=== PATIENT | female | born 1935 | race African-American/Black ===

== ENCOUNTER 2017-04-29 11:26 | Emergency (ER) | payer MEDICARE, OTHER ==
[2017-04-29] MEDS ORDERED: ACETAMINOPHEN 325 MG TABLET PO ONE (12:31)
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
[2017-04-29 14:08] VITALS: BP 103/50
== END 2017-04-29 14:08 | disposition home or self-care (01) ==
LOC: ER 11:26
DX: S30.0XXA Contusion of lower back and pelvis, initial encounter (principal); Y04.2XXA Assault by strike against or bumped into by another person, initial encounter; W18.30XA Fall on same level, unspecified, initial encounter; Y92.009 Unspecified place in unspecified non-institutional (private) residence as the place of occurrence of the external cause; I10 Essential (primary) hypertension; Z87.442 Personal history of urinary calculi
CPT/HCPCS: 99283; 72220; A9270

== ENCOUNTER 2017-12-01 11:01 | Emergency (ER) | payer MEDICARE, OTHER ==
--- NOTE | 2017-12-01 12:10 | ER Document Report ---
ED Medical Screen (RME) - General Chief Complaint: Neck Pain >24hrs old Stated Complaint: NECK PAIN Time Seen by Provider: 12/01/17 12:07 Mode of Arrival: Ambulatory Information source: Patient Notes: This is a pleasant 82-year-old woman with a history of hypertension, chronic kidney disease and arthritis who presents to the emergency room with back pain. Patient states it is more of a tightness. 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 Patient does state that she feels some discomfort in the left shoulder but the pain does not go all the way to the arms. She denies any weakness in the extremities. She denies any recent illnesses or fever. On review of systems, patient does state she sometimes gets dizzy on sitting up. She states she has not been eating as well since her passed this past September. She is followed by Parvin Wilde as well as Dr. Moore for the renal issue. TRAVEL OUTSIDE OF THE [place] IN LAST 30 DAYS: No - HPI Onset: Last week Onset/Duration: Gradual Quality of pain: Achy Severity: Moderate Pain Level: 2 Associated Symptoms: denies: Chest pain, Headache, Nausea, Shortness of breath, Vomiting Exacerbated by: Movement Relieved by: Remaining still Similar symptoms previously: Yes Recently seen / treated by doctor: No - Related Data Smoking: Non-smoker Frequency of alcohol use: None Drug Abuse: None Allergies/Adverse Reactions: No Known Allergies Allergy (Verified 04/29/17 11:30) Past Medical History - General Information source: Patient - Social History Cigarette use (# per day): No Chew tobacco use (# tins/day): No Frequency of alcohol use: None Drug Abuse: None Lives with: Family Family history: None - Past Medical History Cardiac Medical History: Reports: Hx Hypertension Denies: Hx Heart Attack Pulmonary Medical History: Denies: Hx Asthma Neurological Medical History: Denies: Hx Cerebrovascular Accident, Hx Seizures Renal/ Medical History: Reports: Hx Kidney Stones, Other - Chronic kidney disease. 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 Denies: Hx Hepatitis, Hx Hiatal Hernia, Hx Ulcer Musculoskeltal Medical History: Reports Hx Arthritis Infectious Medical History: Denies: Hx Hepatitis Past Surgical History: Reports: Hx Bowel Surgery - ostomy. Denies: Hx Mastectomy, Hx Open Heart Surgery, Hx Pacemaker - Immunizations Hx Diphtheria, Pertussis, Tetanus Vaccination: Yes - given today in ED Review of Systems - Review of Systems Constitutional: denies: Chills, Fever EENT: Other - See H&P Cardiovascular: denies: Chest pain, Palpitations, Dyspnea Respiratory: denies: Cough, Hemoptysis, Short of breath Gastrointestinal: No symptoms reported Genitourinary: No symptoms reported Female Genitourinary: No symptoms reported Musculoskeletal: See HPI Skin: No symptoms reported Hematologic/Lymphatic: No symptoms reported Neurological/Psychological: No symptoms reported Physical Exam - Vital signs Vitals: Temp Pulse Resp BP Pulse Ox 97.7 F 77 14 105/48 L 98 12/01/17 11:12 12/01/17 11:12 12/01/17 11:12 12/01/17 11:12 12/01/17 11:12 Notes: Physical exam: GENERAL: 82-year-old female, alert and oriented 3, no acute distress. Patient' s blood pressure is 105/48. HEAD: Atraumatic, normocephalic. EYES: Pupils equal round and reactive to light, extraocular movements intact, sclera anicteric, conjunctiva are normal. ENT: TMs normal, nares patent, oropharynx clear without exudates. Moist mucous membranes. NECK: Patient does have some scoliosis/curvature. There is no cervical spine tenderness to palpation. Normal range of motion given her age of 82, supple without obvious mass or JVD. LUNGS: Breath sounds clear to auscultation bilaterally and equal. No wheezes rales or rhonchi. HEART: Regular rate and rhythm without murmurs, rubs or gallops. ABDOMEN: Soft, normoactive bowel sounds. No tenderness to palpation. No guarding, no rebound. No masses appreciated. EXTREMITIES: Normal range of motion, no pitting or edema. No clubbing or cyanosis. NEUROLOGICAL: Cranial nerves II through XII grossly intact. Normal speech, moving all extremities. PSYCH: Normal mood, normal affect. SKIN: Warm, Dry, normal turgor, no rashes or lesions noted. Course - Vital Signs Vital signs: Temp Pulse Resp BP Pulse Ox 97.7 F 77 14 105/48 L 98 12/01/17 11:12 12/01/17 11:12 12/01/17 11:12 12/01/17 11:12 12/01/17 11:12 - Diagnostic Test Radiology reviewed: Image reviewed, Reports reviewed - CT of the neck does show significant arthritis. There is no obvious bony lesions. Doctor's Discharge - Discharge Clinical Impression: Neck strain Condition: Stable Disposition: HOME, SELF-CARE Additional Instructions: As we discussed, the CT of the neck does show some arthritic changes. I would continue with Tylenol for the pain. With your history of chronic kidney issues , ibuprofen may not be the best medicine. I would follow-up with Parvin Wilde and bring a copy of today's report with you when you go. As far as the dizziness when you stand up, your blood pressure was 105/48. If it continues to be on the low side and you continue to have dizziness when you sit up, they may want to decrease your blood pressure medicine dose. Return to the emergency room for worsening neck pain, weakness of the upper extremities, any chest pain, shortness of breath or any concerns your blood pressure is too low. Referrals: PARVIN WILDE MD [Primary Care Provider] - 12/03/17
--- NOTE | 2017-12-01 12:56 | RADIOLOGY REPORT (SQ) ---
EXAM DESCRIPTION: CT CERVICAL SPINE WITHOUT COMPLETED DATE/TIME: 12/01/2017 12:25 pm REASON FOR STUDY: neck pain COMPARISON: None. TECHNIQUE: Axial images acquired through the cervical spine without intravenous contrast. Images re viewed with lung, soft tissue and bone windows. Reconstructed coronal and sagittal MPR images review ed. Images stored on PACS. All CT scanners at this facility use dose modulation, iterative reconstruction, and/or weight based d osing when appropriate to reduce radiation dose to as low as reasonably achievable (ALARA). [facility]: Dose Right [facility]: CareDose [facility]: Dose Right [facility]: Teradose 4D [facility]: [employer] RADIATION DOSE: CT Rad equipment meets quality standard of care and radiation dose reduction techniq ues were employed. CTDIvol: 13.3 mGy. DLP: 284 mGy-cm. mGy. LIMITATIONS: None. FINDINGS: ALIGNMENT: Minimal retrolisthesis of C2 on C3. Alignment is otherwise normal. MINERALIZATION: Normal. VERTEBRAL BODIES: No fractures or dislocation. DISCS: Mild loss of the intervertebral disc space heights at C5-C6 and C6-C7 with vacuum disc space p henomenon. Vacuum disc space phenomenon at C4-C5. Small posterior vertebral body osteophytes at C5- C6 resulting in mild osseous narrowing of the neural foramen. FACETS, LATERAL MASSES, POSTERIOR ELEMENTS: No fractures. No dislocation. No acute findings. Mild facet arthropathy. HARDWARE: None in the spine. VISUALIZED RIBS: No fractures. LUNG APICES AND SOFT TISSUES: No significant or acute findings. OTHER: Mild scattered vascular calcifications. IMPRESSION: 1. No acute fracture or dislocation. 2. Mild degenerative disc disease and facet arthropathy of the cervical spine, most pronounced at C5- C6 where there is mild osseous narrowing of the neural foramen. TECHNICAL DOCUMENTATION: JOB ID: [id number] Quality ID # [id number]: Final reports with documentation of one or more dose reduction techniques (e.g., Au tomated exposure control, adjustment of the mA and/or kV according to patient size, use of iterative reconstruction technique) 2010 [employer]- All Rights Reserved Reading location - IP/workstation name: [email or web address]
[2017-12-01 13:34] VITALS: BP 125/53
== END 2017-12-01 13:34 | disposition home or self-care (01) ==
LOC: ER 11:01
DX: S16.1XXA Strain of muscle, fascia and tendon at neck level, initial encounter (principal); X58.XXXA Exposure to other specified factors, initial encounter; M50.322 Other cervical disc degeneration at C5-C6 level; R42 Dizziness and giddiness; I10 Essential (primary) hypertension
CPT/HCPCS: 72125; 99284